=== PATIENT | female | born 1975 | race Caucasian/White ===

== ENCOUNTER 2023-02-08 06:19 | Emergency (ER) | payer OTHER ==
[~2023-02-08] VITALS: Ht 162.6 cm; Wt 100.0 kg
[~2023-02-08 06:19] MED LIST: CYCLOBENZAPRINE5 MG PO; GABAPENTIN100 MG PO; NEURONTIN100 MG PO; OXYCODONE HCL10 MG PO; TRAMADOL HCL50 MG PO
[2023-02-08] MEDS ORDERED: MAPAP325 MG PO (06:43)
[2023-02-08] MEDS ORDERED: ADVIL PM LIQUI1 EACH PO (06:44)
[2023-02-08] MEDS ORDERED: CLEOCIN HCL300 MG PO (08:24)
[2023-02-08 08:45] VITALS: BP 130/75
== END 2023-02-08 08:45 | disposition left against medical advice (07) ==
LOC: ED 06:19
DX: L03.116 Cellulitis of left lower limb (principal); F17.200 Nicotine dependence, unspecified, uncomplicated; Z53.29 Procedure and treatment not carried out because of patient's decision for other reasons; Z88.0 Allergy status to penicillin; Z88.5 Allergy status to narcotic agent; Z88.2 Allergy status to sulfonamides; Z88.8 Allergy status to other drugs, medicaments and biological substances; Z79.899 Other long term (current) drug therapy
CPT/HCPCS: 73590; 80053; 83605; 85025; 93971; 96372; 99284-25; J1885